=== PATIENT | male | born 1985 | race African-American/Black ===

== ENCOUNTER 2018-12-05 22:35 | Inpatient (IN) | payer MEDICAID ==
[2018-12-05 23:21] LABS: ADD MAN DIFF? NO
[2018-12-05 23:22] LABS: BASOPHIL # 0.1 10^3/ul (0.0-0.1); BASOPHILS % 0.7 % (0.0-2.0); EOSINOPHILS # 0.1 10^3/ul (0.0-0.5); EOSINOPHILS % 2.1 % (0.0-7.0); HEMATOCRIT 43.5 % (42.0-52.0); HEMOGLOBIN 14.9 g/dl (14.0-18.0); LYMPHOCYTES # 2.1 10^3/ul (0.8-2.9); LYMPHOCYTES % 30.7 % (15.0-51.0); MEAN CORPUSCULAR HEMOGLOBIN 30.5 pg (29.0-33.0); MEAN CORPUSCULAR HGB CONC 34.3 g/dl (32.0-37.0); MEAN PLATELET VOLUME 10.4 fl (7.4-10.4); MONOCYTE # 0.4 10^3/ul (0.3-0.9); MONOCYTES % 6.1 % (0.0-11.0); NEUTROPHIL # 4.1 10^3/ul (1.6-7.5); NEUTROPHILS % 60.3 % (39.0-77.0); PLATELET COUNT 197 10^3/UL (140-415); RED BLOOD COUNT 4.89 10^6/ul (4.70-6.10); RED CELL DISTRIBUTION WIDTH 12.1 % (11.5-14.5)
[2018-12-05 23:22] LABS: WHITE BLOOD COUNT 6.8 10^3/ul (4.8-10.8)
[2018-12-05 23:40] LABS: ANION GAP 5 (5-13); BLOOD UREA NITROGEN 17 mg/dl (7-20); CALCIUM 9.5 mg/dl (8.4-10.2); CARBON DIOXIDE 28 mmol/L (21-31); CHLORIDE 106 mmol/L (97-110); CHOL/HDL RATIO 5.5 RATIO; CHOLESTEROL 151 mg/dl (100-200); CREATININE 1.37 mg/dl (0.61-1.24); Estimated GFR > 60 mL/min (>60); GLUCOSE 96 mg/dl (70-220); HDL CHOLESTEROL 27 mg/dl (28-63); LDL CHOLESTEROL,CALCULATED 100 mg/dl; POTASSIUM 3.6 mmol/L (3.5-5.1); SODIUM 139 mmol/L (135-144); TRIGLYCERIDES 119 mg/dl (0-149)
[2018-12-05 23:41] LABS: INR 0.99; PROTIME 13.2 Sec (11.9-14.9)
[2018-12-05 23:42] LABS: PARTIAL THROMBOPLASTIN TIME 24.8 Sec (23.0-35.0)
[2018-12-05 23:42] LABS: HEMOGLOBIN A1C 5.2 % (0-5.9)
[2018-12-05 23:44] LABS: ADD UMIC NO; UR ASCORBIC ACID 40 mg/dL (NEGATIVE); UR BILIRUBIN (Dip) NEGATIVE (NEGATIVE); UR BLOOD (Dip) NEGATIVE (NEGATIVE); UR CLARITY CLEAR (CLEAR); UR COLOR YELLOW (YELLOW); UR GLUCOSE (Dip) NEGATIVE (NEGATIVE); UR KETONES (Dip) TRACE mg/dL (NEGATIVE); UR LEUKOCYTE ESTERASE (Dip) NEGATIVE Leu/ul (NEGATIVE); UR NITRITE (Dip) NEGATIVE (NEGATIVE); UR SPECIFIC GRAVITY (Dip) 1.029 (1.003-1.030); UR TOTAL PROTEIN (Dip) NEGATIVE (NEGATIVE); UR UROBILINOGEN (Dip) 1+ mg/dL (NEGATIVE)
[2018-12-05] MEDS: LORAZEPAM 2 MG INJ IV (23:45)
[2018-12-05] MEDS: SOD CHLORIDE 0.9% 1,000 ML IV (23:46)
[2018-12-05 23:53] LABS: AMPHETAMINE/METHAMPHETAMINE Negative (NEGATIVE); BARBITURATES Negative (NEGATIVE); BENZODIAZEPINES Negative (NEGATIVE); CANNABINOIDS Positive (NEGATIVE); COCAINE Negative (NEGATIVE); OPIATES Negative (NEGATIVE); TROPONIN-I < 0.012 ng/ml (0.000-0.120)
[2018-12-06] MEDS ORDERED: ATROPINE 1 MG/10 ML SYRINGE IV
[2018-12-06] MEDS: IODIXANOL LOCM 100 ML BTL (00:10)
[2018-12-06] MEDS: SOD CHLORIDE 0.9% 100 ML ×2 (00:10→16:14)
[2018-12-06] MEDS ORDERED: ONDANSETRON 4 MG INJ IV ×2 (02:00→03:30)
[2018-12-06] MEDS ORDERED: ACETAMINOPHEN 325 MG TAB PO ×2 (02:00→03:30)
[2018-12-06] MEDS ORDERED: DOCUSATE SODIUM 100 MG CAP PO (03:30)
[2018-12-06] MEDS ORDERED: NACL 0.9% 3 ML SYG IV (03:30)
[2018-12-06] MEDS ORDERED: BISACODYL (EC) 5 MG TAB PO (03:30)
[2018-12-06 06:21] LABS: ADD MAN DIFF? NO
[2018-12-06 06:30] LABS: BASOPHILS % 0.3 % (0.0-2.0); EOSINOPHILS # 0.1 10^3/ul (0.0-0.5); EOSINOPHILS % 1.4 % (0.0-7.0); HEMOGLOBIN 14.3 g/dl (14.0-18.0); LYMPHOCYTES # 1.9 10^3/ul (0.8-2.9); MEAN CORPUSCULAR HEMOGLOBIN 30.2 pg (29.0-33.0); MEAN CORPUSCULAR VOLUME 88.6 fl (82.0-101.0); MEAN PLATELET VOLUME 10.5 fl (7.4-10.4); MONOCYTE # 0.4 10^3/ul (0.3-0.9); MONOCYTES % 6.4 % (0.0-11.0); NEUTROPHIL # 4.2 10^3/ul (1.6-7.5); NEUTROPHILS % 63.6 % (39.0-77.0); PLATELET COUNT 202 10^3/UL (140-415); RED BLOOD COUNT 4.74 10^6/ul (4.70-6.10); RED CELL DISTRIBUTION WIDTH 12.2 % (11.5-14.5)
[2018-12-06 06:30] LABS: WHITE BLOOD COUNT 6.6 10^3/ul (4.8-10.8)
[2018-12-06 06:51] LABS: ALANINE AMINOTRANSFERASE 29 IU/L (13-69); ALBUMIN 3.6 g/dl (3.3-4.9); ALBUMIN/GLOBULIN RATIO 1.28; ALKALINE PHOSPHATASE 77 IU/L (42-121); ANION GAP 6 (5-13); ASPARTATE AMINO TRANSFERASE 23 IU/L (15-46); BILIRUBIN,INDIRECT 1.7 mg/dl (0-1.1); BILIRUBIN,TOTAL 1.7 mg/dl (0.2-1.3); BLOOD UREA NITROGEN 13 mg/dl (7-20); CALCIUM 9.3 mg/dl (8.4-10.2); CARBON DIOXIDE 26 mmol/L (21-31); CHLORIDE 108 mmol/L (97-110); CREATININE 1.15 mg/dl (0.61-1.24); Estimated GFR > 60 mL/min (>60); GLUCOSE 102 mg/dl (70-220); MAGNESIUM 2.1 mg/dl (1.7-2.5); POTASSIUM 3.9 mmol/L (3.5-5.1); SODIUM 140 mmol/L (135-144); TOTAL PROTEIN 6.4 g/dl (6.1-8.1)
[2018-12-06] MEDS: SOD CHLORIDE 0.9% 1,000 ML IV (07:00)
[2018-12-06 07:16] LABS: THYROID STIMULATING HORMONE 0.882 MIU/L (0.465-4.680)
[2018-12-06 08:05] LABS: HEMOGLOBIN A1C 5.2 % (0-5.9)
[2018-12-06] MEDS ORDERED: LORAZEPAM 1 MG TAB PO (11:00)
[2018-12-06 12:00] LABS: TROPONIN-I < 0.012 ng/ml (0.000-0.120)
[2018-12-06 15:41] LABS: TROPONIN-I < 0.012 ng/ml (0.000-0.120)
[2018-12-06] MEDS ORDERED: NITROGLYCERIN (SL) 0.4 MG TAB SL (16:00)
[2018-12-06] MEDS: IOHEXOL 100 ML (16:14)
[2018-12-07 06:30] LABS: ADD MAN DIFF? NO
[2018-12-07 06:36] LABS: BASOPHILS % 0.8 % (0.0-2.0); EOSINOPHILS # 0.2 10^3/ul (0.0-0.5); EOSINOPHILS % 4.3 % (0.0-7.0); HEMATOCRIT 43.8 % (42.0-52.0); HEMOGLOBIN 14.8 g/dl (14.0-18.0); LYMPHOCYTES # 1.7 10^3/ul (0.8-2.9); LYMPHOCYTES % 32.1 % (15.0-51.0); MEAN CORPUSCULAR HEMOGLOBIN 30.2 pg (29.0-33.0); MEAN CORPUSCULAR HGB CONC 33.8 g/dl (32.0-37.0); MEAN CORPUSCULAR VOLUME 89.4 fl (82.0-101.0); MEAN PLATELET VOLUME 10.5 fl (7.4-10.4); MONOCYTE # 0.5 10^3/ul (0.3-0.9); MONOCYTES % 8.6 % (0.0-11.0); NEUTROPHIL # 2.9 10^3/ul (1.6-7.5); PLATELET COUNT 196 10^3/UL (140-415); RED CELL DISTRIBUTION WIDTH 12.2 % (11.5-14.5)
[2018-12-07 06:36] LABS: WHITE BLOOD COUNT 5.3 10^3/ul (4.8-10.8)
[2018-12-07 07:03] LABS: ALANINE AMINOTRANSFERASE 30 IU/L (13-69); ALBUMIN 3.8 g/dl (3.3-4.9); ALKALINE PHOSPHATASE 73 IU/L (42-121); ANION GAP 6 (5-13); ASPARTATE AMINO TRANSFERASE 23 IU/L (15-46); BILIRUBIN,INDIRECT 1.4 mg/dl (0-1.1); BILIRUBIN,TOTAL 1.4 mg/dl (0.2-1.3); BLOOD UREA NITROGEN 15 mg/dl (7-20); CALCIUM 9.2 mg/dl (8.4-10.2); CARBON DIOXIDE 27 mmol/L (21-31); CHLORIDE 106 mmol/L (97-110); CREATININE 1.29 mg/dl (0.61-1.24); Estimated GFR > 60 mL/min (>60); GLUCOSE 100 mg/dl (70-220); POTASSIUM 3.6 mmol/L (3.5-5.1); SODIUM 139 mmol/L (135-144); TOTAL PROTEIN 6.5 g/dl (6.1-8.1)
[2018-12-07] MEDS: REGADENOSON 0.4 MG/5 ML SYG (13:45)
[2018-12-07] MEDS: SOD CHLORIDE 0.9% 250 ML IV (15:06)
== END 2018-12-07 17:06 | disposition home or self-care (01) | DRG 313 ==
LOC: TEL 12-07 06:34 → E/R 22:35 → TEL 12-06 01:59
DX: R07.9 Chest pain, unspecified (principal); N17.9 Acute kidney failure, unspecified; E86.0 Dehydration; R55 Syncope and collapse; R00.1 Bradycardia, unspecified; R53.1 Weakness
CPT/HCPCS: 36415; 70450; 70496; 70498; 71045; 71275; 75635; 78452; 80048; 80053; 80061; 80307; 81003; 82962; 83036; 83735; 84443; 84484; 85025; 85610; 85730; 93005; 93017; 93306; 96374; 99285-25